=== PATIENT | female | born 1960 | race Caucasian/White ===

== ENCOUNTER 2018-01-12 13:03 | Inpatient (IN) ==
--- NOTE | 2018-01-12 15:13 | ED ---
HPI General Chief complaint: Psychiatric Symptoms Stated complaint: Psych Eval/VCSO Time Seen by Provider: 01/12/18 14:50 History of Present Illness HPI narrative: 57-year-old female history of schizophrenia presents under [place] act initiated by Dr. Harvey. According to the paperwork the patient has been noncompliant with her medication and she is a flight risk. The patient is a poor historian with disorganized speech and thought patterns so it is difficult to obtain any meaningful history. Related Data Home Medications Medication Instructions Recorded Confirmed Abilify 15 mg PO DAILY 01/12/18 01/12/18 Cogentin 1 mg PO TID 01/12/18 01/12/18 Klonopin 1 mg PO TID 01/12/18 01/12/18 baclofen 10 mg PO BID 01/12/18 01/12/18 escitalopram oxalate 10 mg PO DAILY 01/12/18 01/12/18 meloxicam 15 mg PO DAILY 01/12/18 01/12/18 simvastatin 40 mg PO DAILY 01/12/18 01/12/18 Previous Rx's Medication Instructions Recorded nitrofurantoin monohyd/m-cryst 100 mg PO BID 7 Days #14 cap 01/12/18 [Macrobid] Allergies Allergy/AdvReac Type Severity Reaction Status Date / Time No Known Allergies Allergy Unverified 01/12/18 17:41 Review of Systems ROS Unobtainable ROS Unobtainable: unobtainable due to mental status PMFSH Medical History Medical History Medical history unknown (Acute) Surgical history unknown (Acute) Social History Social History Substance History: No History of Abuse Second Hand Smoke Exposure: No Smoking Status: Former smoker Tobacco Type: Cigarettes How Often Do You Have a Drink Containing Alcohol: Never Recent Travel in [facility] within the Last 8 Weeks: No Recent Out of Country Travel within the Last 8 Weeks: No Immunization History Tetanus Immunization: >5 Years Hx Influenza Vaccine This Season: No Exam Narrative Exam Narrative: GENERAL: Well-developed well-nourished female no acute distress. SKIN: Warm and dry. HEAD: Atraumatic. Normocephalic. EYES: Pupils equal and round. No scleral icterus. No injection or drainage. ENT: No nasal bleeding or discharge. Mucous membranes pink and moist. NECK: Trachea midline. No JVD. CARDIOVASCULAR: Regular rate and rhythm. No murmur appreciated. RESPIRATORY: No accessory muscle use. Clear to auscultation. Breath sounds equal bilaterally. GASTROINTESTINAL: Abdomen soft, non-tender, nondistended. Hepatic and splenic margins not palpable. MUSCULOSKELETAL: No obvious deformities. No clubbing. No cyanosis. No edema. NEUROLOGICAL: Awake and alert. No obvious cranial nerve deficits. Motor grossly within normal limits. Normal speech. PSYCHIATRIC: Disorganized thought process. Insight and judgment appear impaired. Course Initial Documented Vital Signs Temperature 98.2 F 01/12/18 13:20 Pulse Rate 104 H 01/12/18 13:20 Respiratory Rate 20 01/12/18 13:20 Blood Pressure 136/80 01/12/18 13:20 Pulse Oximetry 97 01/12/18 13:20 Last Documented Vital Signs Temperature 98.2 F 01/12/18 13:29 Pulse Rate 104 H 01/12/18 13:29 Respiratory Rate 20 01/12/18 13:29 Blood Pressure 136/80 01/12/18 13:29 Pulse Oximetry 97 01/12/18 13:29 Medical Decision Making MDM Narrative Medical decision making narrative: Mental health screening discussed with the patient. Psychiatric screen ordered. Lab work reviewed and the urinalysis is consistent with UTI. The patient will be started on Macrobid. The patient is medically cleared for psychiatric disposition. Medical Screen Exam Complete: Yes Emergency Medical Condition: Yes Differential Diagnosis Differential Diagnosis: Schizophrenia, acute psychosis, medication noncompliance , substance-induced mood disorder Lab Data Result diagrams: 01/12/18 13:36 01/12/18 13:36 Lab Results 01/12/18 01/12/18 01/12/18 Range/Units 13:36 13:36 13:36 WBC 12.6 H (4.0-11.0) th/mm3 RBC 4.38 (4.00-5.30) mil/mm3 Hgb 12.8 (11.6-15.3) gm/dL Hct 38.8 (35.0-46.0) % MCV 88.6 (80.0-100.0) fL MCH 29.2 (27.0-34.0) pg MCHC 33.0 (32.0-36.0) % RDW 15.3 (11.6-17.2) % Plt Count 254 (150-450) th/mm3 MPV 10.0 (7.0-11.0) fL Neut % (Auto) 72.3 H (16.0-70.0) % Lymph % (Auto) 17.2 (9.0-44.0) % [place] % (Auto) 9.4 H (0.0-8.0) % Eos % (Auto) 0.7 (0.0-4.0) % Baso % (Auto) 0.4 (0.0-2.0) % Neut # (Auto) 9.1 H (1.8-7.7) th/mm3 Lymph # (Auto) 2.2 (1.0-4.8) th/mm3 [place] # (Auto) 1.2 H (0.0-0.9) th/mm3 Eos # (Auto) 0.1 (0.0-0.4) th/mm3 Baso # (Auto) 0.1 (0.0-0.2) th/mm3 WBC Differential . Differential Comment Auto diff final Sodium (136-145) meq/L Potassium (3.5-5.1) meq/L Chloride (98-107) meq/L Carbon Dioxide (21.0-32.0) meq/L Anion Gap (5-15) meq/L BUN (7-18) mg/dL Creatinine (0.50-1.00) mg/dL Estimated GFR (>89) mL/min Random Glucose (74-106) mg/dL Calcium (8.5-10.1) mg/dL Total Bilirubin (0.2-1.0) mg/dL AST (15-37) U/L ALT (10-53) U/L Alkaline Phosphatase (45-117) U/L Total Protein (6.4-8.2) g/dL Albumin (3.4-5.0) g/dL TSH (0.358-3.740) uIU/mL Urine Color (Yellw/Straw) Urine Clarity (Clear) Urine pH (5.0-8.5) Ur Specific [place] (1.002-1.035) Urine Protein (Neg-Trace) mg/dL Urine Glucose (UA) (Negative) mg/dL Urine Ketones (Negative) mg/dL Urine Occult Blood (Negative) Urine Nitrate (Negative) Urine Bilirubin (Negative) Urine Urobilinogen (Less than 2) mg/dL Ur Leukocyte Esterase (Negative) Urine RBC (0-3) /hpf Urine WBC (0-5) /hpf Urine WBC Clumps (None) Ur Squamous Epith Cells (0-5) /hpf Ur Transition Epith Cell (None) /hpf Urine Bacteria (None) /hpf WBC Casts (None) /lpf Urine Mucus (Occasional) /lpf Micro UA Comment Ur Microscopic Review Urine Culture Comments Salicylates Less than 1.7 L (2.8-20.0) mg/dL Urine Opiates Screen (Neg) Acetaminophen Less than 2.0 L (10.0-30.0) mcg/mL Ur Barbiturates Screen (Neg) Ur Amphetamines Screen (Neg) U Benzodiazepines Scrn (Neg) Urine Cocaine Screen (Neg) U Cannabinoids Screen (Neg) Serum Alcohol (0-5) mg/dL 01/12/18 01/12/18 01/12/18 Range/Units 13:36 17:57 17:57 WBC (4.0-11.0) th/mm3 RBC (4.00-5.30) mil/mm3 Hgb (11.6-15.3) gm/dL Hct (35.0-46.0) % MCV (80.0-100.0) fL MCH (27.0-34.0) pg MCHC (32.0-36.0) % RDW (11.6-17.2) % Plt Count (150-450) th/mm3 MPV (7.0-11.0) fL Neut % (Auto) (16.0-70.0) % Lymph % (Auto) (9.0-44.0) % [place] % (Auto) (0.0-8.0) % Eos % (Auto) (0.0-4.0) % Baso % (Auto) (0.0-2.0) % Neut # (Auto) (1.8-7.7) th/mm3 Lymph # (Auto) (1.0-4.8) th/mm3 [place] # (Auto) (0.0-0.9) th/mm3 Eos # (Auto) (0.0-0.4) th/mm3 Baso # (Auto) (0.0-0.2) th/mm3 WBC Differential Differential Comment Sodium 144 (136-145) meq/L Potassium 3.2 L (3.5-5.1) meq/L Chloride 106 (98-107) meq/L Carbon Dioxide 23.9 (21.0-32.0) meq/L Anion Gap 14 (5-15) meq/L BUN 18 (7-18) mg/dL Creatinine 1.34 H (0.50-1.00) mg/dL Estimated GFR 41 L (>89) mL/min Random Glucose 101 (74-106) mg/dL Calcium 9.3 (8.5-10.1) mg/dL Total Bilirubin 0.8 (0.2-1.0) mg/dL AST 69 H (15-37) U/L ALT 39 (10-53) U/L Alkaline Phosphatase 80 (45-117) U/L Total Protein 8.2 (6.4-8.2) g/dL Albumin 4.1 (3.4-5.0) g/dL TSH 0.990 (0.358-3.740) uIU/mL Urine Color Yellow (Yellw/Straw) Urine Clarity Cloudy H (Clear) Urine pH 5.0 (5.0-8.5) Ur Specific [place] 1.011 (1.002-1.035) Urine Protein 30 H (Neg-Trace) mg/dL Urine Glucose (UA) Negative (Negative) mg/dL Urine Ketones Trace H (Negative) mg/dL Urine Occult Blood Small H (Negative) Urine Nitrate Negative (Negative) Urine Bilirubin Negative (Negative) Urine Urobilinogen Less than 2 (Less than 2) mg/dL Ur Leukocyte Esterase Large H (Negative) Urine RBC 5 H (0-3) /hpf Urine WBC 80 H (0-5) /hpf Urine WBC Clumps Few H (None) Ur Squamous Epith Cells 2 (0-5) /hpf Ur Transition Epith Cell 3 (None) /hpf Urine Bacteria Rare H (None) /hpf WBC Casts 12 (None) /lpf Urine Mucus Few H (Occasional) /lpf Micro UA Comment Culture indicated Ur Microscopic Review Not Reportable Urine Culture Comments Culture indicated Salicylates (2.8-20.0) mg/dL Urine Opiates Screen Neg (Neg) Acetaminophen (10.0-30.0) mcg/mL Ur Barbiturates Screen Neg (Neg) Ur Amphetamines Screen Neg (Neg) U Benzodiazepines Scrn Neg (Neg) Urine Cocaine Screen Neg (Neg) U Cannabinoids Screen Neg (Neg) Serum Alcohol Less than 3 (0-5) mg/dL Discharge Plan Discharge Disposition Patient Disposition: 30 Still Patient Discharge Condition Condition: Stable Discharge Details Diagnosis: Encounter for medical clearance for patient hold, Acute UTI Physicians Team ED Provider: Eli Sánchez ED Midlevel Provider: Tyson Houser Primary Care Provider: Primary Care ArieiConcetta Rxs /Orders / Referrals /Forms Prescriptions: New nitrofurantoin monohyd/m-cryst [Macrobid] 100 mg capsule 100 mg PO BID 7 Days Qty: 14 RF: 0 No Action Abilify 15 mg PO DAILY RF: 0 baclofen 10 mg PO BID RF: 0 Cogentin 1 mg PO TID RF: 0 Klonopin 1 mg PO TID RF: 0 escitalopram oxalate 10 mg PO DAILY RF: 0 meloxicam 15 mg PO DAILY RF: 0 simvastatin 40 mg PO DAILY RF: 0 Discharge Interventions Interventions: Vital Signs Last Done: 01/12/18 13:29 Status ED Status: With Doctor
[2018-01-12 15:21] LABS: Baso # (Auto) 0.1 th/mm3 (0.0-0.2); Baso % (Auto) 0.4 % (0.0-2.0); Eos # (Auto) 0.1 th/mm3 (0.0-0.4); Eos % (Auto) 0.7 % (0.0-4.0); Hematocrit 38.8 % (35.0-46.0); Hemoglobin 12.8 gm/dL (11.6-15.3); Lymph # (Auto) 2.2 th/mm3 (1.0-4.8); Lymph % (Auto) 17.2 % (9.0-44.0); Mean Corpuscular Hemoglobin 29.2 pg (27.0-34.0); Mean Corpuscular Volume 88.6 fL (80.0-100.0); Mono # (Auto) 1.2 th/mm3 (0.0-0.9); Mono % (Auto) 9.4 % (0.0-8.0); Neut # (Auto) 9.1 th/mm3 (1.8-7.7); Neut % (Auto) 72.3 % (16.0-70.0); Platelet Count 254 th/mm3 (150-450); Red Blood Count 4.38 mil/mm3 (4.00-5.30); Red Cell Distribution Width 15.3 % (11.6-17.2); White Blood Count 12.6 th/mm3 (4.0-11.0)
[2018-01-12 15:43] LABS: Alanine Aminotransferase 39 U/L (10-53); Albumin 4.1 g/dL (3.4-5.0); Anion Gap 14 meq/L (5-15); Aspartate Aminotransferase 69 U/L (15-37); Blood Urea Nitrogen 18 mg/dL (7-18); Calcium 9.3 mg/dL (8.5-10.1); Carbon Dioxide 23.9 meq/L (21.0-32.0); Chloride 106 meq/L (98-107); Glomerular Filtration Rate 41 mL/min (>89); Glucose,Random 101 mg/dL (74-106); Potassium 3.2 meq/L (3.5-5.1); Sodium 144 meq/L (136-145)
[2018-01-12 15:51] LABS: Alkaline Phosphatase 80 U/L (45-117); Total Protein 8.2 g/dL (6.4-8.2)
[2018-01-12 18:33] LABS: Bacteria,Urine Rare /hpf; Bilirubin,Urine Negative (Negative); Clarity,Urine Cloudy (Clear); Color,Urine Yellow (Yellw/Straw); Glucose,Urine (UA) Negative (Negative); Leukocyte Esterase,Urine Large (Negative); Mucus,Urine Few /lpf (Occasional); Nitrite,Urine Negative (Negative); Specific Gravity,Urine 1.011 (1.002-1.035); Squamous Epithelial Cell,Urine 2 /hpf (0-5); Transitional Epi Cells,Urine 3 /hpf
[2018-01-12 18:37] LABS: Amphetamine Screen,Urine Neg (Neg); Barbiturate Screen,Urine Neg (Neg); Cannabinoid Screen,Urine Neg (Neg); Cocaine Screen,Urine Neg (Neg)
[2018-01-12 18:43] LABS: Opiate Screen,Urine Neg (Neg)
[2018-01-12] MEDS: Nitrofurantoin Monohydrate-Macrocrystal 100 MG Capsule PO SCH (19:11)
[2018-01-12] MEDS ORDERED: Haloperidol 5 MG Tablet PO PRN (20:29)
[2018-01-12] MEDS ORDERED: Haloperidol Inj 5 MG/ML Ampul IM PRN (20:29)
[2018-01-12] MEDS ORDERED: Aluminum/Magnesium/Simethacone Susp 30 ML UDC PO PRN (20:33)
[2018-01-13 08:57] LABS: Chol/HDL Ratio 3.12 Ratio; HDL Cholesterol 47.4 mg/dL (40.0-60.0)
[2018-01-13] MEDS: Nitrofurantoin Monohydrate-Macrocrystal 100 MG Capsule PO SCH ×2 (11:54→17:50)
--- NOTE | 2018-01-13 13:30 | P.HPPSY ---
Provisional Diagnosis Admission Date: January 12, 2018 20:48 [place] I.: Schizophrenia, paranoid type, acute exacerbation P[place] II.: Deferred Competence Certification of Person's Competence To Provide Express and Informed Consent I have personally examined Sujatha Dowling, a person being served at [facility] on, January 13, 2018 1329. Express and informed consent means consent voluntarily given in writing, by a competent person, after sufficient explanation and disclosure of the subject matter involved to enable the person to make a knowing and willful decision without any element of force, fraud, deceit, duress, or other form of constraint or coercion. This person is 18 years of age or older, is not now known to be incompetent to consent to treatment with a guardian advocate, and does not have a health care surrogate or proxy currently making medical treatment decisions. I have found this person to be one of the following: [X] Competent to provide express and informed consent, as defined above, for voluntary admission to this facility and is competent to provide express and informed consent for treatment. He/she has the consistent capacity to make well reasoned, willful, and knowing decisions concerning his or her medical or mental health treatment. The person fully and consistently understands the purpose of the admission for examination/placement and is fully capable of personally exercising all rights assured under [place] [] Incompetent to provide express and informed consent to voluntary admission, and this is incompetent to provide express and informed consent to treatment. The person must be transferred to involuntary status and a petition for a guardian advocate filed with the Circuit Court. [] Refusing to provide express and informed consent to voluntary admission but is competent to provide express and informed consent for treatment. The person must be discharged or transferred to involuntary status. Form shall be completed within 24 hours of a person's arrival at the receiving facility and filed in the clinical record of each person: 1. Admitted on a voluntary basis 2. Permitted to provide express and informed consent to his/her own treatment 3. Allowed to transfer from involuntary to voluntary status 4. Prior to permitting a person to consent to his or her own treatment after having been previously found incompetent to consent to treatment. History of Present Illness Capacity: Has capacity Chief Complaint: "I need a new place to stay since [facility] closed down." History of Present Illness: Ms. Dowling is a 57-year-old female with a history of schizophrenia and also cocaine use disorder who presents under a Shelley act by Dr. Harvey alleging that patient is non-compliant and a "flight risk." Med list from advanced practice nursing services is on patient's chart, and I have reviewed this. Reviewing the electronic medical record, I note that the patient was psychiatrically admitted here most recently under Dr. Teixeira in 2012, at which time she was discharged on Haldol, Cogentin and Haldol Decanoate. Patient seen and examined with counselor. Chart reviewed. Case discussed with nursing staff. Case discussed with counselor. On my examination today, the patient reports that she discontinued her psychotropic medications while she was still at [facility], at least several weeks ago. She has not perceived a significant change off of psychotropics but is agreeable to resuming them now, so long as she is not placed on a mood stabilizer like Depakote. She presents as irritable and paranoid. She provides excessive detail in her narrative, spelling out the names and giving the addresses of many of the individuals she mentions. Her main complaint is that the house where she was placed after leaving [facility] was not adequate to meet her needs, and she is looking for new placement. No depressive or hypomanic/manic symptoms. Besides the paranoia , no other delusional material. She denies any suicidal or homicidal ideation at this time. Remainder of the psychiatric ROS is negative. No acute physical complaints. Past psychiatric history: The patient has previous chart diagnoses as noted above. She gives her diagnosis as "hypomanic." She reports that she is not presently under the care of a psychiatrist but does follow with a psychologist, a Dr. Valdez. She reports that it has been "quite a while" since she was last psychiatrically admitted and suspects that hospitalization at [facility] in 2013 is her most recent psychiatric hospitalization. She denies a history of suicide attempts. Family history: The patient denies a family history of serious mental illness or suicide. She reports that her mother from cancer and her father from some colon issue, both dying when patient was in her 30s. Chemical dependency history: The patient denies any abuse of drugs or alcohol. Social history: The patient reports that she is presently residing in a converted [id number] suite. She previously lived in [facility] and before that in [facility]. Patient notes that she was asked to leave [facility] for not following the rules of that facility, and patient herself admits that she did not follow the rules. She is single with no children. She reportedly attended college at [employer], but it is not clear if she graduated. She receives a disability income in the amount of $1127 per month and says that after garnishment for her student loans she receives $958.40 per month. 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 She denies any active legal issues. She has 1 previous DUI. She denies any access to guns or firearms. She is mu-ism. No reported trauma history to me. I did put out a call to Dr. Harvey to discuss patient's case. I was informed by his medical secretary receptionist that he is out of the office today. I left call back number. - Inpatient Certification I certify that the inpatient services were ordered in accordance with Medicare regulations governing the order. This includes certification that hospital inpatient services are reasonable and necessary and in the case of services not specified as inpatient-only under 42 CFR 419.22(n), that they are appropriately provided as inpatient services in accordance to with the 2-midnight benchmark under 43 CFR 412.3(e) I certify that inpatient psychiatric hospital services are medically necessary. Evaluation and treatment and/or diagnostic testing are expected to improve the patient's condition. The patient needs on a daily basis, active treatment furnished directly by or requiring the supervision of inpatient psychiatric facility personnel. Estimated Total Length of Stay (Days): 7 (5-7) Plans for Post Hospital Care: Not yet determined Review of Systems All other systems reviewed negative except as stated in [facility] - History History Provided By: Patient, Medical Record - Medical History Medical History: Medical History (Last Updated 01/12/18 @ 13:26 by Musa Gage RN) Medical history unknown Surgical history unknown - Tobacco History Second Hand Smoke Exposure: No Tobacco Use In Past 30 Days: No Smoking Status: Former smoker Tobacco Type: Cigarettes - Alcohol History How Often Do You Have a Drink Containing Alcohol: Never - Substance Use History Substance History: Past History - Substance Use Type Marijuana Status: Early Remission Route Used: Inhalation Frequency: Recreational, a few times in the past 1-2 in the past few months Last Used: less than 3-months - Travel History Recent Travel in the [place] Within the Last 8 Weeks: No Recent Travel Out of the Country Within the Last 8 Weeks: No - Immunization History Tetanus Immunization: >5 Years Hx Influenza Vaccine This Season: No Quality Measures - Patient Strengths Patient's strengths (minimum of 2): In a monitored setting. Verbally fluent. Medications and Allergies Active Medications: Active Medications Acetaminophen (Tylenol) 650 mg PO Q4H PRN PRN Reason: Pain 1-5 or Temp >101F Al Hydrox/Mg Hydrox/Simethicone (Mag-Al Plus Susp Liq) 30 ml PO Q6H PRN PRN Reason: DYSPEPSIA Al Hydroxide/Mg Hydroxide (Milk Of Magnesia Liq) 30 ml PO DAILY PRN PRN Reason: CONSTIPATION Diphenhydramine HCl (Benadryl) 50 mg PO HS PRN PRN Reason: INSOMNIA Diphenhydramine HCl (Benadryl Inj) 50 mg IM HS PRN PRN Reason: INSOMNIA Haloperidol (Haldol) 5 mg PO Q6H PRN PRN Reason: AGITATION Haloperidol Lactate (Haldol Inj) 5 mg IM Q6H PRN PRN Reason: AGITATION Hydroxyzine HCl (Atarax) 50 mg PO Q6H PRN PRN Reason: ANXIETY Nitrofurantoin Macrocrystals ([facility]robid) [facility] Last Admin: 01/13/18 11:54 Dose: 100 mg Allergies Allergy/AdvReac Type Severity Reaction Status Date / Time No Known Allergies Allergy Unverified 01/12/18 17:41 Home Medications Medication Instructions Recorded Confirmed Type Abilify 15 mg PO DAILY 01/12/18 01/12/18 History Cogentin 1 mg PO TID 01/12/18 01/12/18 History Klonopin 1 mg PO TID 01/12/18 01/12/18 History baclofen 10 mg PO BID 01/12/18 01/12/18 History escitalopram oxalate 10 mg PO DAILY 01/12/18 01/12/18 History meloxicam 15 mg PO DAILY 01/12/18 01/12/18 History simvastatin 40 mg PO DAILY 01/12/18 01/12/18 History Results - Labs CBC & Chem 7: 01/12/18 13:36 01/12/18 13:36 Labs: Laboratory Results - last 24 hr 01/12/18 01/12/18 01/12/18 13:36 13:36 13:36 WBC 12.6 H RBC 4.38 Hgb 12.8 Hct 38.8 MCV 88.6 MCH 29.2 MCHC 33.0 RDW 15.3 Plt Count 254 MPV 10.0 Neut % (Auto) 72.3 H Lymph % (Auto) 17.2 [place] % (Auto) 9.4 H Eos % (Auto) 0.7 Baso % (Auto) 0.4 Neut # (Auto) 9.1 H Lymph # (Auto) 2.2 [place] # (Auto) 1.2 H Eos # (Auto) 0.1 Baso # (Auto) 0.1 WBC Differential . Differential Comment Auto diff final Sodium Potassium Chloride Carbon Dioxide Anion Gap BUN Creatinine Estimated GFR Random Glucose Calcium Total Bilirubin AST ALT Alkaline Phosphatase Total Protein Albumin Triglycerides Cholesterol LDL Cholesterol, Calc HDL Cholesterol Cholesterol/HDL Ratio TSH Urine Color Urine Clarity Urine pH Ur Specific [place] Urine Protein Urine Glucose (UA) Urine Ketones Urine Occult Blood Urine Nitrate Urine Bilirubin Urine Urobilinogen Ur Leukocyte Esterase Urine RBC Urine WBC Urine WBC Clumps Ur Squamous Epith Cells Ur Transition Epith Cell Urine Bacteria WBC Casts Urine Mucus Micro UA Comment Ur Microscopic Review Urine Culture Comments Salicylates Less than 1.7 L Urine Opiates Screen Acetaminophen Less than 2.0 L Ur Barbiturates Screen Ur Amphetamines Screen U Benzodiazepines Scrn Urine Cocaine Screen U Cannabinoids Screen Serum Alcohol 01/12/18 01/12/18 01/12/18 13:36 17:57 17:57 WBC RBC Hgb Hct MCV MCH MCHC RDW Plt Count MPV Neut % (Auto) Lymph % (Auto) [place] % (Auto) Eos % (Auto) Baso % (Auto) Neut # (Auto) Lymph # (Auto) [place] # (Auto) Eos # (Auto) Baso # (Auto) WBC Differential Differential Comment Sodium 144 Potassium 3.2 L Chloride 106 Carbon Dioxide 23.9 Anion Gap 14 BUN 18 Creatinine 1.34 H Estimated GFR 41 L Random Glucose 101 Calcium 9.3 Total Bilirubin 0.8 AST 69 H ALT 39 Alkaline Phosphatase 80 Total Protein 8.2 Albumin 4.1 Triglycerides Cholesterol LDL Cholesterol, Calc HDL Cholesterol Cholesterol/HDL Ratio TSH 0.990 Urine Color Yellow Urine Clarity Cloudy H Urine pH 5.0 Ur Specific [place] 1.011 Urine Protein 30 H Urine Glucose (UA) Negative Urine Ketones Trace H Urine Occult Blood Small H Urine Nitrate Negative Urine Bilirubin Negative Urine Urobilinogen Less than 2 Ur Leukocyte Esterase Large H Urine RBC 5 H Urine WBC 80 H Urine WBC Clumps Few H Ur Squamous Epith Cells 2 Ur Transition Epith Cell 3 Urine Bacteria Rare H WBC Casts 12 Urine Mucus Few H Micro UA Comment Culture indicated Ur Microscopic Review Not Reportable Urine Culture Comments Culture indicated Salicylates Urine Opiates Screen Neg Acetaminophen Ur Barbiturates Screen Neg Ur Amphetamines Screen Neg U Benzodiazepines Scrn Neg Urine Cocaine Screen Neg U Cannabinoids Screen Neg Serum Alcohol Less than 3 01/13/18 07:48 WBC RBC Hgb Hct MCV MCH MCHC RDW Plt Count MPV Neut % (Auto) Lymph % (Auto) [place] % (Auto) Eos % (Auto) Baso % (Auto) Neut # (Auto) Lymph # (Auto) [place] # (Auto) Eos # (Auto) Baso # (Auto) WBC Differential Differential Comment Sodium Potassium Chloride Carbon Dioxide Anion Gap BUN Creatinine Estimated GFR Random Glucose Calcium Total Bilirubin AST ALT Alkaline Phosphatase Total Protein Albumin Triglycerides 107 Cholesterol 148 LDL Cholesterol, Calc 79 HDL Cholesterol 47.4 Cholesterol/HDL Ratio 3.12 TSH Urine Color Urine Clarity Urine pH Ur Specific [place] Urine Protein Urine Glucose (UA) Urine Ketones Urine Occult Blood Urine Nitrate Urine Bilirubin Urine Urobilinogen Ur Leukocyte Esterase Urine RBC Urine WBC Urine WBC Clumps Ur Squamous Epith Cells Ur Transition Epith Cell Urine Bacteria WBC Casts Urine Mucus Micro UA Comment Ur Microscopic Review Urine Culture Comments Salicylates Urine Opiates Screen Acetaminophen Ur Barbiturates Screen Ur Amphetamines Screen U Benzodiazepines Scrn Urine Cocaine Screen U Cannabinoids Screen Serum Alcohol Labs reviewed. Urine culture pending. Mild leukocytosis, perhaps related to UTI. GFR is decreased significantly relative to baseline. Exam Vital signs: Vital Signs 01/12/18 22:22 01/13/18 04:42 Temperature 97.7 F 98.7 F Pulse Rate 97 H Respiratory Rate 18 18 Blood Pressure 132/79 146/78 H Pulse Oximetry 95 Intake & Output 01/12/18 01/13/18 01/13/18 18:59 06:59 18:59 Intake Total 360 / 360 Balance 360 / 360 Weight 83.7 kg Intake: Oral 360 / 360 Other: Weight On Admission 83.7 kg Narrative: Physical examination completed by ED provider. On my examination today, the patient appears to be in no acute physical distress. No motor abnormalities noted except for some subtle possibly dyskinetic movements of left arm. Labs and vital signs reviewed. Mental Status Examination Appearance: Appropriate Consciousness: Alert Orientation: x4 Motor Activity: Other (Motor exam as above) Speech: Unremarkable Language: Adequate Fund of Knowledge: Adequate Attention and Concentration: Adequate Memory: Unremarkable (Grossly intact on clinical exam) Mood: Irritable Affect: Irritable Thought Process & Associations: Intact Thought Content: Delusional Hallucination Type: None Delusion Type: Paranoid Suicidal Ideation: No Suicidal Plan: No Suicidal Intention: No Homicidal Ideation: No Homicidal Plan: No Homicidal Intention: No Insight: Poor Judgment: Poor Assessment and Plan - Assessment (1) Schizophrenia, paranoid type Code(s): F20.0 - Paranoid schizophrenia Status: Acute - Plan Plan: 57-year-old female with psychiatric history as detailed above who presents under Shelley act. On my examination today, the patient presents as somewhat irritable and paranoid and says that she is in need of new placement. She reports that she has been nonadherent with her psychotropic medications for the last several weeks at least. It does appear that the patient has been filling her Klonopin scripts per [facility]. [facility]ox is negative for benzos, but I have checked with the lab and our [facility]ox has a high limit of detection for clonazepam, and so this may represent a false negative. Patient requires psychiatric hospitalization at this time for safety, observation and stabilization. Admit inpatient. Voluntary status. I will resume psychotropic medication as ordered on patient's outpatient MAR, namely Abilify 15 mg daily, Cogentin 1 mg 3 times daily, Klonopin 1 mg 3 times daily (E-FORCSE report reviewed, current dose will be continued to prevent withdrawal, but we will not escalate the dose given history of substance use issues), and Lexapro 10mg daily. I did begin discussion with patient about possible initiation of long-acting injectable antipsychotic to improve adherence with medications. I will continue the patient's statin and baclofen but hold her Mobic given JESSICA. R/B/A for medications discussed with patient. I will recheck CBC and CMP in the morning to follow-up laboratory abnormalities and also follow up with urine culture. I have ordered confirmatory testing for benzos in urine. I will request a hospitalist consultation for JESSICA. Vitals every shift. Counselor to see. Disposition planning. Estimated length of stay: 5-7 days. Justification for Continued Inpatient Stay: Pending psychiatric stabilization Discharge Planning: ?New placement. Request Healthcare Surrogate/Guardian Advocate?: No
[2018-01-13 15:49] LABS: Hemoglobin A1c 5.7 % (4.3-6.0)
[2018-01-13] MEDS: clonazePAM 1 MG Tablet PO SCH (17:50)
[2018-01-13] MEDS: Baclofen 10 MG Tablet PO SCH (21:52)
[2018-01-14] MEDS: Nitrofurantoin Monohydrate-Macrocrystal 100 MG Capsule PO SCH ×2 (08:28→18:02)
[2018-01-14] MEDS: Escitalopram 10 MG Tablet PO SCH (08:29)
[2018-01-14] MEDS: Baclofen 10 MG Tablet PO SCH ×2 (08:29→21:16)
[2018-01-14] MEDS: clonazePAM 1 MG Tablet PO SCH ×3 (08:30→18:02)
[2018-01-14] MEDS ORDERED: Meloxicam 15 MG Tablet PO SCH (09:00)
[2018-01-14 10:41] LABS: Baso % (Auto) 0.3 % (0.0-2.0); Eos # (Auto) 0.1 th/mm3 (0.0-0.4); Eos % (Auto) 1.8 % (0.0-4.0); Hematocrit 38.3 % (35.0-46.0); Hemoglobin 12.8 gm/dL (11.6-15.3); Lymph # (Auto) 1.1 th/mm3 (1.0-4.8); Lymph % (Auto) 15.4 % (9.0-44.0); Mean Corpuscular HGB Conc 33.4 % (32.0-36.0); Mean Corpuscular Hemoglobin 29.3 pg (27.0-34.0); Mean Corpuscular Volume 87.8 fL (80.0-100.0); Mean Platelet Volume 9.6 fL (7.0-11.0); Mono # (Auto) 0.7 th/mm3 (0.0-0.9); Mono % (Auto) 9.1 % (0.0-8.0); Neut # (Auto) 5.4 th/mm3 (1.8-7.7); Neut % (Auto) 73.4 % (16.0-70.0); Platelet Count 255 th/mm3 (150-450); Red Blood Count 4.37 mil/mm3 (4.00-5.30); Red Cell Distribution Width 15.1 % (11.6-17.2); White Blood Count 7.4 th/mm3 (4.0-11.0)
[2018-01-14 11:01] LABS: Alanine Aminotransferase 39 U/L (10-53); Albumin 3.4 g/dL (3.4-5.0); Alkaline Phosphatase 81 U/L (45-117); Anion Gap 6 meq/L (5-15); Aspartate Aminotransferase 40 U/L (15-37); Blood Urea Nitrogen 8 mg/dL (7-18); Calcium 9.4 mg/dL (8.5-10.1); Carbon Dioxide 32.1 meq/L (21.0-32.0); Chloride 105 meq/L (98-107); Glomerular Filtration Rate 87 mL/min (>89); Glucose,Random 82 mg/dL (74-106); Potassium 4.1 meq/L (3.5-5.1); Sodium 143 meq/L (136-145); Total Protein 7.3 g/dL (6.4-8.2)
--- NOTE | 2018-01-14 13:44 | ECG ---
Date Performed: 01/13/2018 Time Performed: 17:02:23 PTAGE: 57 years EKG: Sinus rhythm NONSPECIFIC T-WAVE ABNORMALITY BORDERLINE ECG NO PREVIOUS TRACING DOCTOR: Feli Wilder Interpretating Date/Time 01/14/2018 13:42:06
--- NOTE | 2018-01-14 14:46 | P.PNPSY ---
Subjective Chief Complaint: "I need a new place to stay since [facility] down." Remarks: Patient seen and examined with nurse. Chart reviewed. Case discussed with nursing staff who reports that the patient slept poorly overnight. On my examination today, the patient complains of feeling restless. She does indeed seem hyperkinetic and fidgety and at one point abruptly stands up and walks around the room. She has ongoing paranoia. She feels that other patient's may be against her, although she feels like the staff cares for her. She denies any SI or HI. I have suggested that she retire to her room for the time being if she finds the milieu too stressful. Besides the restlessness, which seems new, no other side effects from medications. No physical complaints. Vital Signs Temp Pulse Resp BP Pulse Ox 01/14/18 06:20 97.7 F 89 19 146/96 H 97 Intake and Output 01/14/18 01/14/18 01/14/18 06:59 14:59 22:59 Intake Total 240 / 240 Balance 240 / 240 Intake: Oral 240 / 240 Laboratory Results - last 24 hr 01/13/18 01/14/18 01/14/18 07:48 09:55 09:55 WBC 7.4 RBC 4.37 Hgb 12.8 Hct 38.3 MCV 87.8 MCH 29.3 MCHC 33.4 RDW 15.1 Plt Count 255 MPV 9.6 Neut % (Auto) 73.4 H Lymph % (Auto) 15.4 [place] % (Auto) 9.1 H Eos % (Auto) 1.8 Baso % (Auto) 0.3 Neut # (Auto) 5.4 Lymph # (Auto) 1.1 [place] # (Auto) 0.7 Eos # (Auto) 0.1 Baso # (Auto) 0.0 WBC Differential . Differential Comment Auto diff final Sodium 143 Potassium 4.1 D Chloride 105 Carbon Dioxide 32.1 H Anion Gap 6 BUN 8 Creatinine 0.70 Estimated GFR 87 L Random Glucose 82 Hemoglobin A1c 5.7 Calcium 9.4 Total Bilirubin 0.3 AST 40 H ALT 39 Alkaline Phosphatase 81 Total Protein 7.3 D Albumin 3.4 D Labs reviewed. Hypokalemia resolved. Decreased GFR improved. Leukocytosis resolved. EKG reviewed. Review of Systems All other systems reviewed negative except as stated in HPI Mental Status Examination Appearance: Appropriate Consciousness: Alert Orientation: x4 Motor Activity: Normal gait, Other (Restless. No other new motor abnormalities noted.) Speech: Unremarkable Language: Adequate Fund of Knowledge: Adequate Attention and Concentration: Adequate Memory: Unremarkable (Grossly intact on clinical exam) Mood: Irritable Affect: Irritable Thought Process & Associations: Intact Thought Content: Delusional Hallucination Type: None Delusion Type: Paranoid Suicidal Ideation: No Suicidal Plan: No Suicidal Intention: No Homicidal Ideation: No Homicidal Plan: No Homicidal Intention: No Insight: Poor Judgment: Poor Assessment and Plan - Assessment (1) Schizophrenia, paranoid type Code(s): F20.0 - Paranoid schizophrenia Status: Acute (2) Drug-induced akathisia Code(s): G25.71 - Drug induced akathisia Status: Acute - Plan Plan: I suspect that the patient is experiencing akathisia secondary to Abilify. The patient is already on scheduled clonazepam, but I have offered to add scheduled Inderal to try to ameliorate this possible side effect. However, the patient does not wish to initiate Inderal. She does seem quite distressed by her restlessness, and so we discussed switching to a different antipsychotic with less liability for akathisia. After a discussion of her options, we settle on Geodon. Discontinue Abilify. Start Geodon 40 mg twice daily with plans to titrate to effect and as tolerated. Awaiting hospitalist consultation. Follow- up outstanding laboratories. Continue to monitor on the inpatient unit. Continue other care as ordered. Justification for Continued Inpatient Stay: Medication changes. Complicating conditions. High risk for decompensation in less restrictive environment. Impairment in reality construction. Discharge Planning: Pending psychiatric stabilization. Request Healthcare Surrogate/Guardian Advocate?: No
[2018-01-14] MEDS: Acetaminophen 325 MG Tablet PO PRN (21:22)
[2018-01-15] MEDS: clonazePAM 1 MG Tablet PO SCH ×3 (09:15→17:13)
[2018-01-15] MEDS: Baclofen 10 MG Tablet PO SCH ×2 (09:16→20:17)
[2018-01-15] MEDS: Nitrofurantoin Monohydrate-Macrocrystal 100 MG Capsule PO SCH (09:16)
[2018-01-15] MEDS: Escitalopram 10 MG Tablet PO SCH (09:18)
--- NOTE | 2018-01-15 15:18 | P.PNPSY ---
Subjective Chief Complaint: "I need a new place to stay since [facility]." Remarks: Reviewed electronic medical records and discussed case with staff. Follow-up was conducted in the exam room with DANNIE Howell present. Nurse reported that she refused her morning dose of Geodon, but stated that she would take the 6 PM dose. She reports that she feels "fantastic". Says that she slept well and has a good appetite. Denies any side effects from the Geodon. Her mood is good her affect is euthymic. She is discharged focused stating that tomorrow she will request an ROR so that she can leave Wednesday. She is on to mention of friend who may let her live with her and would pick her up for transport. Mental Status Examination Appearance: Appropriate Consciousness: Alert Orientation: x4 Motor Activity: Normal gait, Other (Restless. No other new motor abnormalities noted.) Speech: Unremarkable Language: Adequate Fund of Knowledge: Adequate Attention and Concentration: Adequate Memory: Unremarkable (Grossly intact on clinical exam) Mood: Irritable Affect: Irritable Thought Process & Associations: Intact Thought Content: Delusional Hallucination Type: None Delusion Type: Paranoid Suicidal Ideation: No Suicidal Plan: No Suicidal Intention: No Homicidal Ideation: No Homicidal Plan: No Homicidal Intention: No Insight: Poor Judgment: Poor Assessment and Plan - Assessment (1) Schizophrenia, paranoid type Code(s): F20.0 - Paranoid schizophrenia Status: Acute - Plan Plan: Patient will be reevaluated Wednesday by the attending psychiatrist. Continue with current treatment plan. Justification for Continued Inpatient Stay: Moving this patient to a less restrictive environment would likely result in decompensation. Request Healthcare Surrogate/Guardian Advocate?: No
--- NOTE | 2018-01-15 16:31 | P.CON ---
History of Present Illness Service: [facility] Consult date: 01/15/18 Requesting Physician: Tomas Cruz Reason for Consult: JESSICA Primary Care Provider: No Primary Care Physician Chief Complaint: Dehydration History of Present Illness: This is a 57-year-old white female with history of schizophrenia, prior cocaine use. Patient presented as a Shelley act from her psychiatrist office and she had been noncompliant with medications and was consider a flight risk. Patient has been restarted on her medications. During evaluation emergency room, patient was noted with creatinine 1.34 and GFR of 41. Potassium was 3.2. Patient denies any nausea, no vomiting, no diarrhea. Patient indicates she has been drinking water from a hose. May have possibly gotten dehydrated. She denies any chest pain, no shortness of breath, no fever, no chills. Complains of a stuffy nose from seasonal allergies. Her lab work was repeated today, creatinine is 0.70 GFR went up to 87. Potassium is now 4.1. She was also found positive for UTI and is currently on antibiotics. Urine culture is negative. Denies any urinary symptoms. Hospitalist services are requested for acute kidney injury. Review of Systems All other systems reviewed negative except as stated in HPI [facility] - History History Provided By: Patient, Medical Record - Medical History Medical History: Medical History (Last Updated 01/15/18 @ 16:24 by JUANY Mak) Surgical history unknown (Acute) Hyperlipidemia Medical history unknown Schizophrenia Seasonal allergies - Family History Family History: Family History (Last Updated 01/15/18 @ 16:25 by JUANY Mak) Mother Liver cancer - Tobacco History Second Hand Smoke Exposure: No Tobacco Use In Past 30 Days: No Smoking Status: Former smoker Tobacco Type: Cigarettes - Alcohol History How Often Do You Have a Drink Containing Alcohol: Never - Substance Use History Substance History: Past History (Cocaine use) - Substance Use Type Marijuana Status: Early Remission Route Used: Inhalation Frequency: Recreational, a few times in the past 1-2 in the past few months Last Used: less than 3-months - Travel History Recent Travel in the [place] Within the Last 8 Weeks: No Recent Travel Out of the Country Within the Last 8 Weeks: No - Immunization History Tetanus Immunization: Unsure Hx Influenza Vaccine This Season: No Medications and Allergies Active Medications: Active Medications Acetaminophen (Tylenol) 650 mg PO Q4H PRN PRN Reason: Pain 1-5 or Temp >101F Last Admin: 01/14/18 21:22 Dose: 650 mg Al Hydrox/Mg Hydrox/Simethicone (Mag-Al Plus Susp Liq) 30 ml PO Q6H PRN PRN Reason: DYSPEPSIA Al Hydroxide/Mg Hydroxide (Milk Of Magnesia Liq) 30 ml PO DAILY PRN PRN Reason: CONSTIPATION Baclofen (Lioresal) 10 mg PO BID [facility] Last Admin: 01/15/18 09:16 Dose: 10 mg Benztropine Mesylate (Cogentin) 1 mg PO TID [facility] Last Admin: 01/15/18 12:25 Dose: 1 mg Clonazepam (Klonopin) 1 mg PO TID [facility] Last Admin: 01/15/18 12:25 Dose: 1 mg Escitalopram Oxalate (Lexapro) 10 mg PO DAILY [facility] Last Admin: 01/15/18 09:18 Dose: 10 mg Fluticasone Propionate (Flonase Nasal Lena) 2 spray NASAL DAILY [facility] Last Admin: 01/15/18 16:04 Dose: 2 spray Meloxicam (Mobic) 15 mg PO DAILY [facility] Nitrofurantoin Macrocrystals (Macrobid) 100 mg PO BIDPC [facility] Last Admin: 01/15/18 09:16 Dose: 100 mg Pravastatin Sodium (Pravachol) 40 mg PO DAILY [facility] Last Admin: 01/15/18 09:18 Dose: 40 mg Ziprasidone (Geodon) 40 mg PO BIDPC [facility] Last Admin: 01/15/18 09:19 Dose: Not Given Allergies Allergy/AdvReac Type Severity Reaction Status Date / Time No Known Allergies Allergy Unverified 01/12/18 17:41 Home Medications Medication Instructions Recorded Confirmed Type Abilify 15 mg PO DAILY 01/12/18 01/12/18 History Cogentin 1 mg PO TID 01/12/18 01/12/18 History Klonopin 1 mg PO TID 01/12/18 01/12/18 History baclofen 10 mg PO BID 01/12/18 01/12/18 History escitalopram oxalate 10 mg PO DAILY 01/12/18 01/12/18 History meloxicam 15 mg PO DAILY 01/12/18 01/12/18 History simvastatin 40 mg PO DAILY 01/12/18 01/12/18 History Physical Exam Vital signs: Vital Signs 01/14/18 18:00 01/15/18 05:50 Temperature 98.3 F 97.5 F L Pulse Rate 113 H 92 H Respiratory Rate 20 18 Blood Pressure 117/81 147/85 H Pulse Oximetry 98 96 Intake & Output 01/14/18 01/15/18 01/15/18 18:59 06:59 18:59 Intake Total 720 / 720 Balance 720 / 720 Intake: Oral 720 / 720 Narrative: GENERAL: Well-nourished, well-developed patient in no apparent distress. SKIN: Warm and dry. HEAD: Atraumatic. Normocephalic. EYES: Pupils equal and round. No scleral icterus. No injection or drainage. ENT: No nasal bleeding or discharge. Mucous membranes pink and moist. NECK: Trachea midline. No JVD. CARDIOVASCULAR: Regular rate and rhythm. RESPIRATORY: No accessory muscle use. Clear to auscultation. Breath sounds equal bilaterally. GASTROINTESTINAL: Abdomen soft, non-tender, nondistended. Hepatic and splenic margins not palpable. MUSCULOSKELETAL: Extremities without clubbing, cyanosis, or edema. No obvious deformities. NEUROLOGICAL: Awake and alert and oriented 3. No obvious cranial nerve deficits. Motor grossly within normal limits. Five out of 5 muscle strength in the arms and legs. Normal speech. PSYCHIATRIC: Disorganized thinking. Cooperative. Assessment and Plan - Assessment (1) JESSICA (acute kidney injury) Code(s): N17.9 - Acute kidney failure, unspecified Status: Acute (2) Acute UTI Code(s): N39.0 - Urinary tract infection, site not specified Status: Acute (3) Schizophrenia, paranoid type Code(s): F20.0 - Paranoid schizophrenia Status: Acute (4) Hyperlipidemia Code(s): E78.5 - Hyperlipidemia, unspecified Status: Chronic - Plan 57-year-old female with a history of schizophrenia, admitted under Shelley act for noncompliance with medications and flight risk. Patient was noted with creatinine 1.34. Also noted with acute UTI. Denies any urinary symptoms, no fever or chills. No nausea, no vomiting, no diarrhea. Schizophrenia Noncompliant with medications Psychiatry following Continue with ViktoriaentinMark Klonopin Acute kidney injury, possibly secondary to dehydration. Creatinine and GFR now improved Renal function stable -Encourage p.o. fluids -Hold Mobic Acute UTI, asymptomatic Urine culture mixed gram-positive sotero Discontinue Macrobid, completed 4 days. Complaints of stuffy nose, history of seasonal allergies -We will order Flonase 2 puffs daily Hyperlipidemia Continue with Pravachol 40 mg p.o. daily Thank you for this consultation Kidney function appears to have improved We will sign off at this time, reconsult if needed (4) Hyperlipidemia Qualifiers: Hyperlipidemia type: unspecified Qualified Code(s): E78.5 - Hyperlipidemia, unspecified
[2018-01-15] MEDS: Acetaminophen 325 MG Tablet PO PRN (20:17)
[2018-01-16] MEDS: Escitalopram 10 MG Tablet PO SCH (08:43)
[2018-01-16] MEDS: Baclofen 10 MG Tablet PO SCH ×2 (08:45→21:00)
[2018-01-16] MEDS: clonazePAM 1 MG Tablet PO SCH ×3 (08:45→17:15)
--- NOTE | 2018-01-16 12:58 | P.PNPSY ---
Subjective Chief Complaint: Schizophrenia, paranoid Remarks: eviewed electronic medical records and discussed case with staff. Follow-up was conducted in the patient's room with DANNIE Howell present. Nurse reports that yesterday she would not take her morning medication, but today she was willing to take her medications. She is complaining of arthritis. She is preoccupied with her discharge plan and her living situation. She denies any auditory or visual hallucinations. Review of Systems All other systems reviewed negative except as stated in HPI Mental Status Examination Appearance: Appropriate Consciousness: Alert Orientation: x4 Motor Activity: Normal gait, Other (Restless. No other new motor abnormalities noted.) Speech: Unremarkable Language: Adequate Fund of Knowledge: Adequate Attention and Concentration: Adequate Memory: Unremarkable (Grossly intact on clinical exam) Mood: Appropriate Affect: Appropriate Thought Process & Associations: Intact Thought Content: Delusional Hallucination Type: None Delusion Type: Paranoid Suicidal Ideation: No Suicidal Plan: No Suicidal Intention: No Homicidal Ideation: No Homicidal Plan: No Homicidal Intention: No Insight: Fair Judgment: Impulsive Assessment and Plan - Assessment (1) Paranoid schizophrenia Code(s): F20.0 - Paranoid schizophrenia Status: Acute (2) Drug induced akathisia Code(s): G25.71 - Drug induced akathisia Status: Acute - Plan Plan: Patient will be reevaluated Wednesday by the attending psychiatrist. Continue with current treatment plan. Justification for Continued Inpatient Stay: Moving patient to a less restrictive environment may result in her decompensation. Request Healthcare Surrogate/Guardian Advocate?: No
[2018-01-17] MEDS: Escitalopram 10 MG Tablet PO SCH (08:43)
[2018-01-17] MEDS: clonazePAM 1 MG Tablet PO SCH ×2 (08:43→12:44)
[2018-01-17] MEDS: Baclofen 10 MG Tablet PO SCH (08:44)
--- NOTE | 2018-01-17 12:32 | P.DSPSY ---
Psychiatry Discharge Summary Inpatient Psychiatric care?: Yes Advance Directives: Unknown Reason for Unknown:: Due to Patient Condition Mental Health Advance Directive: No Health Care Proxy: No - Admission Admission Date: January 12, 2018 20:48 - Admission Diagnosis (1) Schizophrenia, paranoid type Code(s): F20.0 - Paranoid schizophrenia Brief History: Ms. Dowling is a 57-year-old female with a history of schizophrenia and also cocaine use disorder who presents under a Shelley act by Dr. Harvey alleging that patient is non-compliant and a "flight risk." Med list from advanced practice nursing services is on patient's chart, and I have reviewed this. Reviewing the electronic medical record, I note that the patient was psychiatrically admitted here most recently under Dr. Teixeira in 2012, at which time she was discharged on Haldol, Cogentin and Haldol Decanoate. Patient seen and examined with counselor. Chart reviewed. Case discussed with nursing staff. Case discussed with counselor. On my examination today, the patient reports that she discontinued her psychotropic medications while she was still at [facility], at least several weeks ago. She has not perceived a significant change off of psychotropics but is agreeable to resuming them now, so long as she is not placed on a mood stabilizer like Depakote. She presents as irritable and paranoid. She provides excessive detail in her narrative, spelling out the names and giving the addresses of many of the individuals she mentions. Her main complaint is that the house where she was placed after leaving [facility] was not adequate to meet her needs, and she is looking for new placement. No depressive or hypomanic/manic symptoms. Besides the paranoia , no other delusional material. She denies any suicidal or homicidal ideation at this time. Remainder of the psychiatric ROS is negative. No acute physical complaints. Tobacco Use In Past 30 Days: No How Often Do You Have a Drink Containing Alcohol: Never Hospital Course: Patient was admitted to a locked, inpatient psychiatric unit. A general medical consultation was obtained. Appropriate precautions were in place throughout patient's hospital stay. Patient was seen and examined on the unit by psychiatry and also visited by counselor. Psychotropic medications were adjusted. Patient did experience suspected akathisia with Abilify and was switched to Geodon, which she tolerated much better with no akathisia or other side effects. There was no evidence of any suicidality or homicidality on the unit. There was no evidence of significant self-care deficit. The patient has completed a right of release, set to this afternoon. On the day of discharge: Patient seen and examined with nurse. Chart reviewed. Case discussed with nursing staff. No behavioral issues noted overnight. Case discussed with counselor. On my examination today, the patient is continuing to request discharge from the inpatient psychiatric unit today. She says that she has reconciled with her landlord and wishes to return to the place from which she had come. She denies any suicidal or homicidal ideation, intent or plan. She notes "I am all mellowed out now." Mood is "good," and I can elicit no depressive or hypomanic/manic symptoms. Sleep and appetite are fair. She denies any audiovisual hallucinations. In particular, she denies any command auditory hallucinations to hurt self/others. Although no delusional material can be elicited, the patient does exhibit some bizarre ideation, for example rambling essentially unprompted about eyeballs, God, and saying that she does not believe in LASERs. She denies side effects from medications. No physical complaints. Weighing the relevant factors and based on the available evidence, I director business travel that the patient does not presently meet criteria for involuntary psychiatric hospitalization. There is no evidence of imminent risk of harm to self or others from mental illness as defined under the Shelley act, nor is there evidence of self-care deficit to support involuntary psychiatric hospitalization. I do believe that the patient would benefit from additional inpatient psychiatric hospitalization both to monitor for resolution of her current psychotic episode as she does have some lingering, if mild, bizarre ideation as well as to work towards a better placement for the patient. However , the patient continues to insist on discharge from the inpatient psychiatric unit today, and I have no legal basis to retain her over her objection. I will therefore discharge her AGAINST MEDICAL ADVICE. I have explained to the patient that she is leaving AGAINST MEDICAL ADVICE. I will provide her with refills of her psychotropic medications as she says that these are needed, except that I will not provide her with a refill of her clonazepam as a re- review of the controlled substances database report today indicates that the patient received a refill of clonazepam at the beginning of January and so additional refill at this time would be inappropriately early. Psychiatric follow-up as arranged by counselor. Patient is also to follow up with primary care. I have counseled the patient to abstain from substances of abuse. I have counseled the patient regarding warning signs for need to return to the psychiatric emergency room as part of a general safety plan. - Discharge Discharge Date: 01/17/18 - Discharge Diagnosis (1) Paranoid schizophrenia Diagnosis: Principal (improved versus admission) Code(s): F20.0 - Paranoid schizophrenia Status: Acute Discharge Disposition: AMA - Discharge Instructions Discharge Diet: Regular Diet Activities You Can Perform: Weight Bearing As Tolerat - Discharge Time > 30 minutes Mental Status Examination Appearance: Appropriate Consciousness: Alert Orientation: x4 Motor Activity: Normal gait, Other (No hand tremor, no dystonia, no dyskinesia, no other motor abnormalities noted. No evidence of akathisia at this point.) Speech: Unremarkable Language: Adequate Fund of Knowledge: Adequate Attention and Concentration: Adequate Memory: Unremarkable (Grossly intact on clinical exam) Mood: Appropriate Affect: Appropriate Thought Process & Associations: Intact Thought Content: Bizarre thinking (mild) Hallucination Type: None Delusion Type: None Suicidal Ideation: No Suicidal Plan: No Suicidal Intention: No Homicidal Ideation: No Homicidal Plan: No Homicidal Intention: No Mental Status Exam Remarks: Insight and judgment are perhaps fair. Discharge/Advance Care Plan - Results Vital Signs: Last Vital Signs Temp 98.4 F 01/17/18 06:01 Pulse 90 01/17/18 06:01 Resp 16 01/17/18 06:01 BP 135/95 H 01/17/18 06:01 Pulse Ox 96 01/17/18 06:01 Lab Results: Laboratory Results Hemoglobin A1c 5.7 % (4.3-6.0) 01/13/18 07:48 Triglycerides 107 mg/dL (42-150) 01/13/18 07:48 Cholesterol 148 mg/dL (120-200) 01/13/18 07:48 LDL Cholesterol, Calc 79 mg/dL (0-99) 01/13/18 07:48 HDL Cholesterol 47.4 mg/dL (40.0-60.0) 01/13/18 07:48 TSH 0.990 uIU/mL (0.358-3.740) 01/12/18 13:36 Urine Culture Comments Culture indicated 01/12/18 17:57 Summary of Procedures: None done Pending Results: None - Medications Number of antipsychotic medications at discharge: 1 - Discharge Care Plan Goals to Promote Your Health: * To prevent worsening of your condition and complications * To maintain your health at the optimal level Directions to Meet Your Goals: Take your medications as prescribed Follow your dietary instruction Follow activity as directed Keep your appointments as scheduled Take your immunizations and boosters as scheduled If your symptoms worsen call your PCP, if no PCP go to Urgent Care Center or Emergency Room For 30/11 questions related to your inpatient stay or results of tests pending at discharge, please contact Dr. Tomas Cruz MD at [phone] Smoking is Dangerous to Your Health. Avoid second hand smoking
== END 2018-01-17 16:05 | disposition left against medical advice (07) ==
LOC: NEPJ 13:03 → NEDA 20:48 → H260 21:07
PROVIDERS: ADMIT Psychiatry & Neurology Psychiatry; ATTEND Psychiatry & Neurology Psychiatry